=== PATIENT | male | born 1975 | race Caucasian/White ===

== ENCOUNTER 2020-07-23 01:37 | Emergency (ER) | payer MEDICAID ==
[~2020-07-23] VITALS: Ht 185.4 cm; Wt 95.3 kg
[2020-07-23 02:18] VITALS: BP 144/90
--- NOTE | 2020-07-23 02:27 | NUR ---
PT WAS AT HOME AND SAID HIS HAD THE HEATER ON IN THE RV AND HE FELT LIKE HE COULDN'T BREATH. NO COUGH, NO FEVER, NO N/V/D. PT STATES HE HASN'T BEEN AROUND ANYONE SICK. PT PLACED IN A GOWN, BED IN LOWEST POSITION AND SIDERAIL UP X 1. NKA NO HX
--- NOTE | 2020-07-23 02:28 | NUR ---
PT TAKEN OFF NONREBREATHER AND CURRENTLY ON ROOMAIR. O2 SAT 98%. ALEX COLLECTED AND TAKEN TO LAB
[2020-07-23 04:38] VITALS: BP 144/90
--- NOTE | 2020-07-23 04:39 | NUR ---
Patient discharged with v/s stable. Written and verbal after care instructions given and explained. Patient alert, oriented and verbalized understanding of instructions. Ambulatory with steady gait. All questions addressed prior to discharge. ID band removed. Patient advised to follow up with PMD. Rx of ventolin given. Patient educated on indication of medication including possible reaction and side effects. Opportunity to ask questions provided and answered.
== END 2020-07-23 03:30 | disposition home or self-care (01) ==
LOC: MED 01:37
DX: R06.02 Shortness of breath (principal)
CPT/HCPCS: 71045; 99284